=== PATIENT | male | born 1965 | race Caucasian/White ===

== ENCOUNTER → 2016-11-05 | Day surgery (SDC) | payer OTHER ==
[~2016-11-05] MED LIST: AMLODIPINE BESY10 MG PO; ATORVASTATIN CA80 MG PO; BUPROPION XL150 MG PO; CITALOPRAM HBR40 MG PO; FARXIGA10 MG PO; FENOFIBRATE160 MG PO; METFORMIN PO
--- NOTE | ~2016-11-05 | OR ---
Unit #: [id number] #: [id number] Patient: ATA WALLS [id number] [address] [place], [place] [address] [id number] MR#: [id number] NAME: ATA WALLS ROOM: Date of Procedure: 11/05/2016 Admission Date: 11/05/2016 Surgeon: Raymon Viera M.D. : 1965 Attending Physician: Raymon Viera M.D. OPERATIVE REPORT PREOPERATIVE DIAGNOSIS Screening colonoscopy. POSTOPERATIVE DIAGNOSIS Screening colonoscopy. PROCEDURE PERFORMED Colonoscopy to terminal ileum. ANESTHESIA Monitored anesthesia care. FINDINGS The patient was found to have a normal colon to the terminal ileum other than mild internal hemorrhoids. SPECIMENS None. COMPLICATIONS None apparent. CONDITION The patient tolerated the procedure well. INDICATIONS FOR PROCEDURE The patient is a 51-year-old white male, who presents at this time for screening colonoscopy. DESCRIPTION OF PROCEDURE After obtaining informed consent, the patient was brought to the endoscopy suite and after adequate monitored anesthesia care, had the colonoscope placed through the anus and slowly advanced to the level of the cecum without difficulty with the lumen always in view. The cecum was normal as was the ileocecal valve. We were able to pass through the ileocecal valve into the terminal ileum. The terminal ileum was normal as was the ileocecal valve and cecum. The ascending colon was normal as was the hepatic flexure, transverse colon, splenic flexure, descending colon, sigmoid colon, and rectum. On retroflexing in the rectum to the anorectal junction, the patient was found to have some mild internal hemorrhoids. The scope was removed without difficulty. The patient tolerated the procedure well and went from the endoscopy suite to recovery area in Unit #: [id number] #: [id number] Patient: ATA WALLS stable condition. RECOMMENDATIONS High-fiber diet, lots of liquids, tucks or wipes p.r.n. Follow up as needed. Dictated by... Neena Bonilla/benitezl TD: 11/05/2016 14:10 JOB #: [id number] CC: Randal Le M.D. [facility] OPERATIVE REPORT Page 1 of 1 X Raymon Viera MD PROCEDURE OPERATIVE NOTE
== END | disposition home or self-care (01) ==
LOC: COPS 11:03
PROVIDERS: Surgery
PROC: 0DJD8ZZ Inspection of Lower Intestinal Tract, Via Natural or Artificial Opening Endoscopic (ICD-10-PCS; 2016-11-05)
PROC: 0DJD8ZZ Inspection of Lower Intestinal Tract, Via Natural or Artificial Opening Endoscopic (ICD-10-PCS; principal; 2016-11-05 13:00)
DX: Z12.11 Encounter for screening for malignant neoplasm of colon (principal); K64.8 Other hemorrhoids; E11.9 Type 2 diabetes mellitus without complications; Z79.84 Long term (current) use of oral hypoglycemic drugs; I10 Essential (primary) hypertension; E78.5 Hyperlipidemia, unspecified; Z79.899 Other long term (current) drug therapy; Z98.890 Other specified postprocedural states
CPT/HCPCS: 82947; J2250